=== PATIENT | male | born 1970 | race American Indian/Alaskan Native ===

== ENCOUNTER 2016-07-28 20:54 | Observation (INO) | payer SELFPAY ==
[2016-07-28 21:07] VITALS: O2SAT 96
--- NOTE | 2016-07-28 21:18 | C.PDOC ---
Time Seen by Provider: 07/28/16 21:17 Chief Complaint (Nursing): Substance Abuse Past Medical History Vital Signs: Last Vital Signs Temp 98.3 F 07/28/16 21:01 Pulse 103 H 07/28/16 21:01 Resp 20 07/28/16 21:01 BP 104/57 L 07/28/16 21:01 Pulse Ox 96 07/28/16 21:01 - Social History Hx Tobacco Use: Yes Hx Alcohol Use: Yes Hx Substance Use: No - Immunization History Hx Tetanus Toxoid Vaccination: No Hx Influenza Vaccination: No Hx Pneumococcal Vaccination: No ED Course And Treatment O2 Sat by Pulse Oximetry: 96 Disposition Counseled Patient/Family Regarding: Studies Performed, Diagnosis, Need For Followup - Disposition Referrals: [facility] [Outside] Disposition: HOME/ ROUTINE Disposition Time: 21:17 Condition: FAIR - Clinical Impression Clinical Impression: Alcohol abuse, Alcohol intoxication
--- NOTE | 2016-07-28 21:18 | C.PDOC ---
History Of Present Illness Patient presents to the ER with acute ER intoxication. Patient is homeless and needs a place to stay. Has no physical complaints at this time. Time Seen by Provider: 07/28/16 21:17 Chief Complaint (Nursing): Substance Abuse History Per: Patient History/Exam Limitations: no limitations Onset/Duration Of Symptoms: Hrs Current Symptoms Are (Timing): Still Present Suicide/Self Injury Attempted (Context): None Modifying Factor(s): Alcohol Severity: None Pain Scale Rating Of: 0 Associated Symptoms: denies: Depression, Suicidal Thoughts, Suicidal Plan Involuntary Hold By: None Recent travel outside of the [place]: No Past Medical History Reviewed: Historical Data, Nursing Documentation, Vital Signs Vital Signs: Last Vital Signs Temp 98.3 F 07/28/16 21:01 Pulse 103 H 07/28/16 21:01 Resp 20 07/28/16 21:01 BP 104/57 L 07/28/16 21:01 Pulse Ox 96 07/29/16 03:31 - Medical History PMH: No Chronic Diseases Surgical History: No Surg Hx Family History: States: No Known Family Hx - Social History Hx Tobacco Use: Yes Hx Alcohol Use: Yes Hx Substance Use: No - Immunization History Hx Tetanus Toxoid Vaccination: No Hx Influenza Vaccination: No Hx Pneumococcal Vaccination: No Review Of Systems Constitutional: Negative for: Fever, Chills Gastrointestinal: Negative for: Nausea, Vomiting, Diarrhea Neurological: Positive for: Other (ETOH intoxication) Physical Exam - Physical Exam Appears: Well, Non-toxic Skin: Warm, Dry, Other (ETOH on breath) Oral Mucosa: Moist Chest: Symmetrical, No Tenderness Cardiovascular: Rhythm Regular, No Murmur Respiratory: No Rales, No Rhonchi, No Wheezing Gastrointestinal/Abdominal: Soft, No Tenderness Neurological/Psych: Oriented x3 ED Course And Treatment O2 Sat by Pulse Oximetry: 96 Pulse Ox Interpretation: Normal Reevaluation Time: 04:51 Reassessment Condition: Improved ED OBSERVATION Discharge: Yes Date of observation admission: 07/28/16 Time of observation admission: 21:26 - Observation admission statement Patient is being placed in observation because:: Acute ETOH intoxication - Goals of Observation Goals of observation are:: Sobriety - Progress Note Progress Note: 07/28/16 22:29 no complaints, vitals stable 07/29/16 00:30 arousable 07/29/16 02:30 vitals stable 07/29/16 04:30 no complaints Disposition Counseled Patient/Family Regarding: Studies Performed, Diagnosis, Need For Followup - Disposition Disposition: HOME/ ROUTINE Disposition Time: 02:00 Condition: FAIR - Clinical Impression Clinical Impression: Alcohol abuse, Alcohol intoxication - Scribe Statement The provider has reviewed the documentation as recorded by the Scribe Soham Green All medical record entries made by the Thongibe were at my direction and personally dictated by me. I have reviewed the chart and agree that the record accurately reflects my personal performance of the history, physical exam, medical decision making, and the department course for this patient. I have also personally directed, reviewed, and agree with the discharge instructions and disposition.
[2016-07-29 05:41] VITALS: BP 100/54; PULSE 88; RESP 14; TEMP 98
== END 2016-07-29 04:51 | disposition home or self-care (01) ==
LOC: C.ER 20:54 → C.9OBSV 21:19
PROVIDERS: ADMIT Emergency Medicine; ATTEND Emergency Medicine
DX: F10.129 Alcohol abuse with intoxication, unspecified (principal); Z59.0 Homelessness; Z87.891 Personal history of nicotine dependence; Y90.9 Presence of alcohol in blood, level not specified
CPT/HCPCS: 82948; G0378